=== PATIENT | male | born 2000 | race Two or more races ===

== ENCOUNTER 2022-07-06 22:13 | Emergency (ER) | payer BC ==
[~2022-07-06] VITALS: Ht 182.9 cm; Wt 77.1 kg
== END 2022-07-06 23:37 | disposition home or self-care (01) ==
LOC: ER 22:13
DX: S80.811A Abrasion, right lower leg, initial encounter (principal); W54.0XXA Bitten by dog, initial encounter; Y93.9 Activity, unspecified; Y92.89 Other specified places as the place of occurrence of the external cause; Y99.9 Unspecified external cause status